=== PATIENT | male | born 1955 | race Caucasian/White ===

== ENCOUNTER 2022-04-30 08:50 | Emergency (ER) | payer MEDICARE, MEDICAID, SELFPAY ==
[2022-04-30 09:10] VITALS: BP 134/71; PULSE 65; RESP 16; TEMP 36.6; O2SAT 100
--- NOTE | 2022-04-30 09:23 | ED.URI ---
HPI - URI/Sore Throat General Chief Complaint: Upper Respiratory Infection Stated Complaint: Congestion Time Seen by Provider: 04/30/22 09:23 Source: patient and RN notes reviewed Mode of arrival: ambulatory Limitations: no limitations History of Present Illness HPI Narrative: 66-year-old male presents to the [facility] with 3 days of cough, fever and sore throat. Patient reports fever and sore throat is better but the cough is not. Has a history of emphysema. [facility] No treatment prior to arrival Onset (ago): day(s) (3) Related Data Allergies Allergy/AdvReac Type Severity Reaction Status Date / Time ampicillin Allergy Nausea and Verified 04/30/22 09:21 Vomiting Review of Systems Review of Systems: All systems reviewed & are unremarkable except as noted in HPI and below Constitutional: Constitutional: Reports as per HPI, Denies chills and Reports fever(s) (3 days ago) Eyes: Eyes: Reports no additional eye complaints ENT: Reports system reviewed and no additional complaints, except as documented Cardiovascular: Cardiovascular: Reports no additional cardiovascular complaints Respiratory: Respiratory: Reports as per HPI, Reports chest congestion and Reports cough Gastrointestinal: Gastrointestinal: Reports no additional gastrointestinal complaints Musculoskeletal: Musculoskeletal: Reports no additional musculoskeletal complaints Integumentary/Breasts: Skin/Breast: Reports system reviewed and no additional complaints, except as docu Neurologic: Reports system reviewed and no additional complaints, except as documented Psychiatric: Psychiatric: Reports no additional psychiatric complaints Allergic/Immunologic: Allergic/Immunologic: Reports no additional allergic/immunologic complaints PMFSH Past Medical History Medical History (Updated 04/30/22 @ 19:17 by Sheeba Hernandez APRN) Emphysema of lung Social History Social History (Updated 04/30/22 @ 19:18 by Sheeba Hernandez APRN) Gender identity (if verbalized by the patient): Male Comments At the time of my signature, I reviewed and agree with the nursing past medical, surgical, social, and family history. There is no relevant family history pertinent to the patient complaint. Exam Const: General: no acute distress, alert and ill appearing chronically; not acutely Nutritional Appearance: well nourished Orientation/consciousness: patient oriented x3 Limitations: no limitations HENMT: Head: normal to inspection Ears: external ears normal, TM's normal bilaterally and EAC's normal Throat: posterior oropharynx normal and uvula midline Eyes: General: appearance normal, both eyes and all related structures Pupils: Equal, round and reactive pupils present Neck: Neck: normal visual inspection, no lymphadenopathy and no meningeal signs Chest: Chest palpation & inspection: normal inspection of the chest Resp: Effort & Inspection: normal respiratory effort and no use of accessory muscles Auscultation: clear to auscultation bilaterally, no crackles, no rales, no rhonchi and wheezes left lower and right lower Cardio: Rate: regular rate Rhythm: regular rhythm Back/Spine/Pelvis: Cervical Spine: normal cervical lordosis Thoracic/Lumbar Spine: thoracic and lumbar spine normal to inspection Skin: General skin exam: normal color Rashes: no rashes Wounds: no wounds Neuro: General: patient oriented x3, moves all extremities, no meningeal signs and no focal motor deficits Cranial nerves: Yes Equal, round and reactive pupils present Speech: normal speech Gait exam (Neuro): Normal gait present Extrem: General: normal to inspection, full ROM and capillary refill normal Psych: Appearance: grossly normal and well kempt Mental Status: mental status grossly normal Affect: normal affect Attitude: cooperative Thought content: Yes Normal thought content present Course Course Emergency Course: Discharge instructions reviewed with patient
== END 2022-04-30 09:41 | disposition home or self-care (01) ==
PROVIDERS: Emergency Provider Nurse Practitioner; PCP Family Medicine
DX: J40 Bronchitis, not specified as acute or chronic (principal); J43.9 Emphysema, unspecified
CPT/HCPCS: 99203; G0463

== ENCOUNTER 2023-10-15 18:34 | Emergency (ER) | payer OTHER, MEDICAID, SELFPAY ==
--- NOTE | 2023-10-15 18:35 | ED.SKABFB ---
HPI - Skin/Abscess/Foreign Bdy General Chief complaint: Skin/Abscess/Foreign Body Stated complaint: cyst on back Time Seen by Provider: 10/15/23 18:35 Source: patient Mode of arrival: ambulatory Limitations: no limitations History of Present Illness HPI narrative: Donn is a 68-year-old male patient presenting to the clinic today with complaints of cyst to his mid back. He reports that he does have multiple cyst on his back however the 1 to his mid back it started draining and smells very bad. There is slight redness around the cyst with tenderness to palpation. He denies any fever or chills. Has multiple cyst to his neck and back. Related Data Allergies Allergy/AdvReac Type Severity Reaction Status Date / Time ampicillin Allergy Nausea and Verified 10/15/23 19:05 Vomiting Review of Systems Review of Systems: Pertinent positives per HPI. Patient denies any fever, chills, rash, headache, visual changes, dizziness, cough, runny nose, sore throat, shortness of breath, chest pain, palpitations, nausea, vomiting, diarrhea, constipation, abdominal pain, or any urinary issues. PMFSH Past Medical History Medical History Emphysema of lung Social History Social History Gender identity (if verbalized by the patient): Male Comments At the time of my signature, I reviewed and agree with the nursing past medical, surgical, social, and family history. There is no relevant family history pertinent to the patient complaint. Exam Narrative: General: Well-developed, well nourished, in no apparent distress Head: Normocephalic, atraumatic. Cardio: Regular rate and rhythm, s1 and s2 normal, no murmur appreciated. Resp: Clear to auscultation bilaterally, no rhonchi, rales, wheezing or rubs. Integumentary: [place], warm, and dry, fluctuant infected-red/mild erythema sebaceous cyst to the mid back measuring 2 x 3 cm-tender to palpation, white foul-smelling discharge coming from the cyst. Course Course Emergency Course: Portions of this record may have been created with voice recognition software. Level of Care: Express Care Visit Vital Signs Vital signs: Vital Signs Temperature 36.8 C 10/15/23 18:45 Pulse Rate 71 10/15/23 18:45 Respiratory Rate 16 10/15/23 18:45 Blood Pressure 159/84 H 10/15/23 18:45 Pulse Oximetry 99 10/15/23 18:45 Oxygen Delivery Room Air 10/15/23 18:45 Temperature 36.8 C 10/15/23 18:45 Pulse Rate 71 10/15/23 18:45 Respiratory Rate 16 10/15/23 18:45 Blood Pressure 159/84 H 10/15/23 18:45 Pulse Oximetry 99 10/15/23 18:45 Oxygen Delivery Room Air 10/15/23 18:50 Vital signs reviewed Procedures Abscess I/D back: Date of Incision: 10/15/23 Local Anesthetic: lidocaine 1% Amount of anesthesia used (mL): 3 Technique: needle aspiration and incised with #11 blade Amount of fluid expressed (mL): 6 Irrigation: No Packing used?: plain (09/26 in) I&D Results: Pus and Blood Complications: other (none) Abcess I&D Additional Comments: Verbal consent obtained for incision and drainage. Risk and benefits explained and patient voiced understanding. Area was cleansed with antiseptic soap. Area was prepped and draped using sterile technique. 25 gauge needle was then used to instill (3) ml of lidocaine without epi into the wound edges. Patient tolerated well and anesthesia was appropriate. 18 gauge needle was then used to aspirate contents from the cyst than an 11 blade scalpel was then used to make a 0.5cm incision over the cyst. White bloody exudate expressed from cavity. Quarter-inch plain packing was inserted into the cyst cavity. Wound culture obtained and sent to lab. Patient tolerated procedure well. MDM - Skin/Abscess/Foreign Bdy MDM Narrative Medical decision making narrative: At t
[2023-10-15 18:45] VITALS: BP 159/84; PULSE 71; RESP 16; TEMP 36.8; O2SAT 99
== END 2023-10-15 19:44 | disposition home or self-care (01) ==
PROVIDERS: Emergency Provider Nurse Practitioner Family; PCP Family Medicine
DX: L72.3 Sebaceous cyst (principal); J43.9 Emphysema, unspecified
CPT/HCPCS: 10061; 87070; 87205; 99213; G0463

== ENCOUNTER 2023-10-18 18:45 | Emergency (ER) | payer OTHER, MEDICAID, SELFPAY ==
[2023-10-18 18:58] VITALS: BP 157/84; PULSE 68; RESP 16; TEMP 36.5; O2SAT 99
--- NOTE | 2023-10-18 19:14 | ED.WOUNDLAC ---
HPI - Wound/Laceration General Chief Complaint: Wound/Laceration Stated Complaint: follow up Time Seen by Provider: 10/18/23 19:14 Source: patient Mode of arrival: ambulatory Limitations: no limitations History of Present Illness HPI narrative: 68 yo M presents to have packing removed from infected sebaceous cyst. Had I and D at [facility]. Does not have PCP for follow up. has not been taking abx because pharmacist told him would cause diarrhea so waited til weekend to start when off work. all systems reviewed and negative except as noted above. Related Data Allergies Allergy/AdvReac Type Severity Reaction Status Date / Time ampicillin Allergy Nausea and Verified 10/15/23 19:05 Vomiting Review of Systems Review of Systems: CONSTITUTIONAL: Denies fever, chills, or sweats. EYES: Denies visual changes, redness, or discharge. ENT: Denies rhinorrhea, congestion, sore throat, or otalgia. CARDIOVASCULAR: Denies chest pain, palpitations, or edema. RESPIRATORY: Denies cough or dyspnea. GASTROINTESTINAL: Denies abdominal pain, nausea, vomiting, or diarrhea. GENITOURINARY: Denies dysuria or hematuria. SKIN: Denies rash or itching. Patient presents for packing removal from infected cyst I&D. MUSCULOSKELETAL: Denies back pain, joint pain, or myalgia. NEUROLOGIC: Denies headache, numbness, or weakness. PSYCHIATRIC: Denies anxiety or depression. All other systems reviewed are negative, except as documented in HPI. PMFSH Past Medical History Medical History Emphysema of lung Social History Social History Gender identity (if verbalized by the patient): Male Comments At time of signature, agree with nursing past medical, surgical, social and family history. There is no relevant family history pertinent to the presenting complaint. Exam Narrative: GENERAL: This is a well-nourished, well-developed patient, in no apparent distress. HEAD: normocephalic, atraumatic. EYES: PERRL. Sclera clear/white. Vision is grossly intact. EARS: External ears normal NOSE: External nose normal NECK: Neck supple, non-tender without lymphadenopathy, masses or thyromegaly. CARDIOVASCULAR: Regular rate and rhythm without murmurs, gallops, or rubs. RESPIRATORY: Clear to auscultation. Breath sounds equal bilaterally. No wheezes, rales, or rhonchi. SKIN: warm, Dry, intact with no suspicious lesions or rash, good texture and turgor. erythematous cyst approximately 3 cm diameter to middle of back. Packing removed, malodorous brownish drainage. NEURO: awake, alert, and oriented to person, place and time. There were no obvious focal neurologic abnormalities. EXTREMITIES: No joint tenderness, effusion, or edema noted. Course Course Level of Care: Express Care Visit Vital Signs Vital signs: Vital Signs Temperature 36.5 C 10/18/23 18:58 Pulse Rate 68 10/18/23 18:58 Respiratory Rate 16 10/18/23 18:58 Blood Pressure 157/84 H 10/18/23 18:58 Pulse Oximetry 99 10/18/23 18:58 Oxygen Delivery Room Air 10/18/23 18:58 Temperature 36.5 C 10/18/23 18:58 Pulse Rate 68 10/18/23 18:58 Respiratory Rate 16 10/18/23 18:58 Blood Pressure 157/84 H 10/18/23 18:58 Pulse Oximetry 99 10/18/23 18:58 Oxygen Delivery Room Air 10/18/23 18:58 Reviewed MDM - Wound/Laceration MDM Narrative Medical decision making narrative: Patient has been noncompliant with antibiotic. Instructed patient he needs to start his antibiotic tonight. Antibiotic education given. Recommend he go to the ER for any worsening of symptoms. Patient is aware of diagnosis, understands and agrees to treatment plan. Anticipatory guidance given. Patient agrees to follow-up as directed and is aware of reasons to seek care at the emergency department. Portions of this record may have been created with voice recognition so
== END 2023-10-18 19:25 | disposition home or self-care (01) ==
PROVIDERS: Emergency Provider Nurse Practitioner Family; PCP Family Medicine
DX: L72.3 Sebaceous cyst (principal); Z91.199 Patient's noncompliance with other medical treatment and regimen due to unspecified reason; J43.9 Emphysema, unspecified
CPT/HCPCS: 99212; G0463

== ENCOUNTER 2024-04-27 10:09 | Outpatient (CLI) | payer OTHER, MEDICAID, SELFPAY ==
--- NOTE | 2024-04-27 14:04 | WPDPFTINT ---
PFT Procedure Performed PFT Procedure Performed Spirometry with Pre/Post Bronchodilator Plethysmography (Lung Vol) Diffusing Cap (DLCO) Flow Vol Loop PFT Interpretation This is a pulmonary function test with pre and post-bronchodilator spirometry, plethysmography and diffusing capacity. The test was performed and results interpreted in accordance with the 2019 and 2005 ATS/ERS Task Force guidelines respectively using the Global Lung Function Initiative-2012 reference equations. Patient demonstrated good effort and cooperation. Reproducibility criteria were met. The quality of the pre bronchodilator spirometry maneuver was Grade A and post bronchodilator spirometry maneuver was Grade A. Findings: Spirometry: There is decreased maximal expiratory airflow at all lung volumes with concave expiratory flow tracing. The contour the inspiratory flow tracing is normal. The pre bronchodilator FVC is 5.04 L, 108% predicted. The pre bronchodilator FEV1 is 2.15 L, 61% predicted. The pre bronchodilator FEV1: FVC ratio is 43%. The post bronchodilator FVC is 5.22 L, representing a 4% increase. The post bronchodilator FEV1 is 2.29 L, representing a 6% increase. The post bronchodilator FEV1: FVC ratio is 44%. Plethysmography: The total lung capacity is 8.40 L, 113% predicted. The functional residual volume is 5.08 L, 129% predicted. The residual volume is 3.36 L, 134% predicted. Diffusing capacity: The diffusing capacity unadjusted for hemoglobin and carboxyhemoglobin is 14.9, 54% predicted. The diffusing capacity adjusted for alveolar volume is 2.33, 60% predicted. Impression: There is a moderate obstructive abnormality. There is no significant improvement after inhaling a single dose of albuterol. The total lung capacity and functional residual capacity are normal with an increased residual volume and a normal residual volume: Total lung capacity ratio. This is an abnormal but nonspecific lung volume pattern. The diffusing capacity unadjusted for hemoglobin and carboxyhemoglobin is moderately decreased and remains moderately decreased when adjusted for alveolar volume. There are no prior studies for comparison
--- NOTE | 2024-04-27 14:09 | WPDPFTINT ---
PFT Procedure Performed PFT Procedure Performed Spirometry with Pre/Post Bronchodilator Plethysmography (Lung Vol) Diffusing Cap (DLCO) Flow Vol Loop PFT Interpretation This is a pulmonary function test with pre and post-bronchodilator spirometry, plethysmography and diffusing capacity. The test was performed and results interpreted in accordance with the 2019 and 2005 ATS/ERS Task Force guidelines respectively using the Global Lung Function Initiative-2012 reference equations. Patient demonstrated good effort and cooperation. Reproducibility criteria were met. The quality of the pre bronchodilator spirometry maneuver was Grade B and post bronchodilator spirometry maneuver was Grade B. Findings: Spirometry: The contour the expiratory flow tracing demonstrates a mid expiratory pause or knee pattern in 3 of 3 pre bronchodilator maneuvers and in 4 of 4 post bronchodilator maneuvers. The contour the inspiratory flow tracing is normal. The pre bronchodilator FVC is 3.10 L, 99% predicted. The pre bronchodilator FEV1 is 2.60 L, 99% predicted. The pre bronchodilator FEV1: FVC ratio is 84%. The post bronchodilator FVC is 3.17 L, representing a 2% increase. The post bronchodilator FEV1 is 2.68 L, representing a 3% increase. The post bronchodilator FEV1: FVC ratio is 84%. Plethysmography: The total lung capacity is 4.43 L, 103% predicted. The functional residual capacity is 2.23 L, 96% predicted. The residual volume is 1.29 L, 102% predicted. Diffusing capacity: The diffusing capacity unadjusted for hemoglobin and carboxyhemoglobin is 22.0, 99% predicted. The diffusing capacity adjusted for alveolar volume is 5.80, 115% predicted. In comparison to previous pre bronchodilator spirometry from 07/15/2023 in which only pre bronchodilator spirometry was performed, the mid expiratory pause or knee pattern was present. The pre bronchodilator FVC is unchanged from 2.91 L to 3.10 L. The pre bronchodilator FEV1 is unchanged from 2.44 L to 2.60 L. Impression: There is a reproducible knee pattern of the expiratory flow tracing which can be a normal variant or pathologic and has been attributed to a choke point section of the bronchial tree. The normal variant is more common in younger female patients, decreases with age and is more pronounced in the post bronchodilator efforts. The pattern has also been described with kyphosis, kyphoscoliosis, central obstructing mass, and post lung transplantation. Otherwise, the spirometry is normal without evidence of an obstructive abnormality. There is no significant improvement after inhaling a single dose of albuterol. The lung volumes are normal. The diffusing capacity is normal. In comparison to previous pulmonary function testing on 07/15/2023 in which only pre bronchodilator spirometry was performed the pre bronchodilator knee pattern was present. There has been no significant change in the pre bronchodilator FVC or FEV1. Clinical correlation is recommended.
== END 2024-04-27 10:10 | disposition home or self-care (01) ==
PROVIDERS: PCP Family Medicine; Visit Provider Family Medicine
DX: J43.8 Other emphysema (principal)
CPT/HCPCS: 94060; 94726; 94729

== ENCOUNTER 2025-03-29 10:47 | Outpatient (CLI) | payer MEDICARE, SELFPAY ==
--- NOTE | ~2025-03-29 | XR_ITS ---
EXAM/PROCEDURE: XR chest 2V - 03/29/2025 11:11 CDT HISTORY: 69 years old Male with rule out pneumonia TECHNIQUE: Two view(s) of the chest. COMPARISON: None available. FINDINGS: LUNGS/ PLEURA: No focal consolidation. No appreciable pneumothorax or large pleural effusion. HEART/ MEDIASTINUM: Heart appears normal in size. BONES: No acute osseous abnormality. OTHER: Visualized upper abdomen is unremarkable. IMPRESSION: No acute process. Reviewed, dictated and finalized at location A. IMPRESSION: No acute process.
--- OUTSIDE RECORDS SUMMARY | 2025-03-29 11:08 | XMS_ITS | Clinical Summary ---
Author Organization [facility] Health Address [address] [place] [address] Care Team Providers Care [place] Name Role Phone Unavailable Primary Care Provider Unavailabl e Allergies No known active allergies Medications No known medications Active Problems No known active problems Social History Tobacco Use Types Packs/Day Years Used Date Smoking Tobacco: Former Cigarettes 1.5 35 0 09/23/1977 - 09/23/2012 Smokeless Tobacco: Never Alcohol Use Standard Drinks/Week Comments Not Currently 0 (1 standard drink = 0.6 oz pur e alcohol) Sex and Gender Information Value Date Recorded Sex Assigned at Not on file Legal Sex Male 9:04 PM PST Gender Identity Not on file Sexual Orientation Not on file Last Filed Vital Signs Vital Sign Reading Time Taken Comments Blood Pressure 146/83 05/02/2021 8:25 AM CDT Pulse - - Temperature 36 C (96.8 F) 05/02/2021 8:25 AM CDT Respiratory Rate - - Oxygen Saturation - - Inhaled Oxygen Concentration - - Weight 67.6 kg (149 lb) 05/02/2021 8:25 AM CDT Height 182.9 cm (6') 05/02/2021 8:25 AM CDT Body Mass Index 20.21 05/02/2021 8:25 AM CDT Plan of Treatment Health Maintenance Due Date Last Done Comments Dental Oral Exam 01/26/2022 07/28/2021, 11/14/2020 Dental Prophylaxis 01/26/2022 07/28/2021 Dental X-Ray: Bitewings 01/26/2022 07/28/2021 Dental X-Ray: Full Mouth 07/29/2024 07/28/2021, 01/21, 11/14/2020 Dental X-Ray: Panoramic 07/29/2024 07/28/2021, 02/05, 11/14/2020 Medical Devices Implanted Type Area Threat Monitoring Analyst Device Identifier Shelf Expiration Date Model / Serial / Lot Creos Allo.Amado Particulate 1.0cc Corticocancellous Implanted:Hiram De La Garza DMD (Quantity not on file) Bone Graft Tooth #30 [employer] [id number] / / [employer] Wp 5.5 X 11.5mm-03/17/2021 Implanted:03/17/2021 by Hiram De La Garza DMD (Quantity not on file) Dental Implant Tooth #30 [employer] 10/15/2025 [id number] / / [id number] Creos Xenoprotect 15 X 20mm Collagen Membrane-03/17/2021 Implanted:03/17/2021 by Hiram De La Garza DMD (Quantity not on file) Membrane Tooth #30 [employer] 12/13/2025 [id number] / / [id number] Procedures Procedure Name Priority Date/Time Associated Diagnosis Comments PANORAMIC RADIOGRAPHIC IMAGE Routine 07/28/2021 9:00 AM CDT PROPHYLAXIS - ADULT Routine 07/28/2021 9 :00 AM CDT INTRAORAL - COMPREHENSIVE SERIES OF RADIOGRAPHIC IMAGES Routine 07/28/2021 9:00 AM CDT COMPREHENSIVE ORAL EVALUATION - NEW OR ESTABLISHED PATIENT Routine 07/28/2021 9:00 AM CDT from Last 3 Months or Most Recently Relevant to Health Maintenance Insurance [facility] REVA CABALLERO [address] PPO
--- OUTSIDE RECORDS SUMMARY | 2025-03-29 11:08 | XMS_ITS | Encounter Summary ---
Author Organization [facility] Health Address [address] [place] [address] Care Team Providers Care Technical Testing Engineer Name Role Phone Unavailable Primary Care Provider Unavailabl e Prior Encounters Date Type Department Care Team Description 01/08/2022 9:00 AM CDT Office Visit [facility] [address] [place] [address] Adela Watkins, DMD 11/08/2021 Travel 11/08/2021 9:00 AM ELECTRIC DOLLY OPERATOR Office Visit [facility] [address] [place] [address] Adela Watkins, DMD 11/01/2021 Travel 11/01/2021 8:00 AM ELECTRIC DOLLY OPERATOR Office Visit [facility] [address] [place] [address] Adela Watkins, DMD 10/23/2021 Travel 10/23/2021 1:30 PM ELECTRIC DOLLY OPERATOR Office Visit [facility] [address] [place] [address] Adela Watkins, DMD 10/16/2021 Travel 10/16/2021 8:30 AM ELECTRIC DOLLY OPERATOR Office Visit [facility] [address] [place] [address] Adela Watkins, DMD 09/27/2021 Travel 09/27/2021 8:00 AM ELECTRIC DOLLY OPERATOR Office Visit [facility] [address] [place] [address] Adela Watkins, DMD 09/13/2021 Travel 09/13/2021 9:30 AM ELECTRIC DOLLY OPERATOR Office Visit [facility] [address] [place] [address] Adela Watkins, DMD 08/25/2021 Travel 08/25/2021 9:30 AM ELECTRIC DOLLY OPERATOR Office Visit [facility] [address] [place] [address] Adela Watkins, DMD 07/28/2021 Travel 07/28/2021 9:00 AM CDT Office Visit [facility] [address] [place] [address] Adela Watkins, DMD 07/14/2021 Travel 07/14/2021 9:00 AM CDT Office Visit [facility] [address] [place] [address] Adela Watkins, DMD 05/22/2021 Travel 05/22/2021 8:00 AM CDT Office Visit [facility] [address] [place] [address] Adela Watkins, DMD 05/02/2021 Travel 05/02/2021 8:15 AM CDT Office Visit [facility] [address] [place] [address] Hiram De La Garza, DMD 04/26/2021 Orders Only [facility] [address] [place] [address] Adela Watkins, DMD 04/03/2021 Travel 04/03/2021 2:00 PM CDT Office Visit [facility] [address] [place] [address] Adlea Watkins, DMD 03/20/2021 Travel 03/20/2021 8:00 AM CDT Office Visit [facility] [address] [place] [address] Adela Watkins, DMD 03/17/2021 Travel 03/17/2021 10:30 AM CDT Office Visit [facility] [address] [place] [address] Hiram De La Garza, DMD 03/10/2021 Orders Only [facility] [address] [place] [address] JuneAdela, DMD 10/12/2019 Converted CPS Chart Documents [facility] [address] [place] [address] <No scans attached> 10/12/2019 Converted 13x Documents [facility] [address] [place] [address] <No scans attached> Last Filed Vital Signs Vital Sign Reading [...] 05/02/2021 8:25 AM CDT Plan of Treatment Not on file Procedures Procedure Name Priority Date/Time Associated Diagnosis Comments ADJUST COMPLETE DENTURE - MAXILLARY Routine 01/08/2022 9:00 AM CDT ADJUST COMPLETE DENTURE - MAXILLARY Routine 11/08/2021 9:00 AM ELECTRIC DOLLY OPERATOR ADJUST COMPLETE DENTURE - MAXILLARY Routine 11/01/2021 8:00 AM ELECTRIC DOLLY OPERATOR ADJUST COMPLETE DENTURE - MANDIBULAR Routine 11/01/2021 8:00 AM ELECTRIC DOLLY OPERATOR ADJUST COMPLETE DENTURE - MAXILLARY Routine 10/23/2021 1:30 PM ELECTRIC DOLLY OPERATOR DELIVER DENTURE Routine 10/16/2021 8:30 AM ELECTRIC DOLLY OPERATOR WAX TRY-IN Routine 09/27/2021 8:00 AM ELECTRIC DOLLY OPERATOR WAX TRY-IN Routine 09/13/2021 9:30 AM ELECTRIC DOLLY OPERATOR DELIVER DENTURE Routine 08/25/2021 9:30 AM ELECTRIC DOLLY OPERATOR ORAL HYGIENE INSTRUCTIONS Routine 2020 9:00 AM CDT TOPICAL APPLICATION OF FLUORIDE VARNISH Routine 07/28/2021 9:00 AM CDT PROPHYLAXIS - ADULT Routine 07/28/2021 9 :00 AM CDT FINAL IMPRESSION Routine 07/28/2021 9:00 AM CDT INTRAORAL PHOTO Routine 07/28/2021 9:00 AM CDT INTRAORAL PHOTO Routine 07/28/2021 9:00 AM CDT INTRAORAL PHOTO Routine 07/28/2021 9:00 AM CDT INTRAORAL PHOTO Routine 07/28/2021 9:00 AM CDT PANORAMIC RADIOGRAPHIC IMAGE Routine 07/28/2021 9:00 AM CDT INTRAORAL - COMPREHENSIVE SERIES OF RADIOGRAPHIC IMAGES Routine 07/28/2021 9:00 AM CDT COMPREHENSIVE ORAL EVALUATION - NEW OR ESTABLISHED PATIENT Routine 07/28/2021 9:00 AM CDT LAB FEE - NON-CROWN/BRIDGE Routine 07/14/2021 9:00 AM CDT ADJUST COMPLETE DENTURE - MAXILLARY Routine 05/22/2021 8:00 AM CDT 2 UL ALVEOLOPLASTY NOT IN CONJUNCTION WITH EXTRACTIONS - ONE TO THREE TEETH Routine 05/02/2021 8:15 AM CDT ADJUST COMPLETE DENTURE - MAXILLARY Routine 04/03/2021 2:00 PM CDT RE-EVALUATION POST-OPERATIVE OFFICE VISIT Routine 03/20/2021 8:00 AM CDT 11 UL ALVEOLOPLASTY IN CONJUNCTION WITH EXTRACTIONS - FOUR OR MORE TEETH OR TOOTH SPACES, PER QUADRANT Routine 03/17/2021 10:30 AM CDT 6 UR ALVEOLOPLASTY IN CONJUNCTION WITH EXTRACTIONS - FOUR OR MORE TEETH OR TOOTH SPACES, PER QUADRANT Routine 03/17/2021 10:30 AM CDT 18 EXTRACTION, ERUPTED TOOTH REQUIRING REMOVAL OF BONE AND/OR SECTIONING OF TOOTH Routine 03/17/2021 10:30 AM CDT 14 EXTRACTION, ERUPTED TOOTH REQUIRING REMOVAL OF BONE AND/OR SECTIONING OF TOOTH Routine 03/17/2021 10:30 AM CDT 13 EXTRACTION, ERUPTED TOOTH REQUIRING REMOVAL OF BONE AND/OR SECTIONING OF TOOTH Routine 03/17/2021 10:30 AM CDT 11 EXTRACTION, ERUPTED TOOTH REQUIRING REMOVAL OF BONE AND/OR SECTIONING OF TOOTH Routine 03/17/2021 10:30 AM CDT 10 EXTRACTION, ERUPTED TOOTH REQUIRING REMOVAL OF BONE AND/OR SECTIONING OF TOOTH Routine 03/17/2021 10:30 AM CDT 9 EXTRACTION, ERUPTED TOOTH REQUIRING REMOVAL OF BONE AND/OR SECTIONING OF TOOTH Routine 03/17/2021 10:30 AM CDT 8 EXTRACTION, ERUPTED TOOTH REQUIRING REMOVAL OF BONE AND/OR SECTIONING OF TOOTH Routine 03/17/2021 10:30 AM CDT 7 EXTRACTION, ERUPTED TOOTH REQUIRING REMOVAL OF BONE AND/OR SECTIONING OF TOOTH Routine 03/17/2021 10:30 AM CDT 6 EXTRACTION, ERUPTED TOOTH REQUIRING REMOVAL OF BONE AND/OR SECTIONING OF TOOTH Routine 03/17/2021 10:30 AM CDT 4 EXTRACTION, ERUPTED TOOTH REQUIRING REMOVAL OF BONE AND/OR SECTIONING OF TOOTH Routine 03/17/2021 10:30 AM CDT 3 EXTRACTION, ERUPTED TOOTH REQUIRING REMOVAL OF BONE AND/OR SECTIONING OF TOOTH Routine 03/17/2021 10:30 AM CDT 2 EXTRACTION, ERUPTED TOOTH REQUIRING REMOVAL OF BONE AND/OR SECTIONING OF TOOTH Routine 03/17/2021 10:30 AM CDT IMMEDIATE DENTURE - MAXILLARY Routine 02/08/2021 2:00 AM CDT OS CONSULT Routine 11/23/2020 2:00 AM ELECTRIC DOLLY OPERATOR CANCELLED APPOINTMENT Routine 11/18/2020 2:00 AM ELECTRIC DOLLY OPERATOR COMPREHENSIVE ORAL EVALUATION - NEW OR ESTABLISHED PATIENT Routine 11/14/2020 2:00 AM ELECTRIC DOLLY OPERATOR PANORAMIC RADIOGRAPHIC IMAGE Routine 11/14/2020 2:00 AM ELECTRIC DOLLY OPERATOR INTRAORAL - COMPREHENSIVE SERIES OF RADIOGRAPHIC IMAGES Routine 11/14/2020 2:00 AM ELECTRIC DOLLY OPERATOR OFFICE VISIT FOR OBSERVATION (DURING REGULARLY SCHEDULED HOURS) - NO OTHER SERVICES PERFORMED Routine 11/14/2020 2:00 AM ELECTRIC DOLLY OPERATOR INTRAORAL PHOTO Routine 11/14/2020 2:00 AM ELECTRIC DOLLY OPERATOR INTRAORAL PHOTO Routine 11/14/2020 2:00 AM ELECTRIC DOLLY OPERATOR INTRAORAL PHOTO Routine 11/14/2020 2:00 AM ELECTRIC DOLLY OPERATOR INTRAORAL PHOTO Routine 11/14/2020 2:00 AM ELECTRIC DOLLY OPERATOR Visit Diagnoses Not on file Insurance CLARISA CABALLERO [address] PPO [place] [id number]
== END 2025-03-29 10:48 | disposition home or self-care (01) ==
PROVIDERS: PCP Family Medicine
DX: J43.8 Other emphysema (principal)
CPT/HCPCS: 71046